=== PATIENT | female | born 1960 | race African-American/Black ===

== ENCOUNTER 2022-12-20 19:38 | Emergency (ER) | payer SELFPAY ==
[~2022-12-20] VITALS: Ht 167.6 cm; Wt 95.0 kg
[2022-12-20 19:55] VITALS: BP 129/87
== END 2022-12-21 02:31 | disposition left against medical advice (07) ==
LOC: ER 19:38
DX: Z53.21 Procedure and treatment not carried out due to patient leaving prior to being seen by health care provider (principal)
CPT/HCPCS: 99281